=== PATIENT | female | born 1965 | race Caucasian/White ===

== ENCOUNTER 2017-08-02 09:05 | Emergency (ER) | payer OTHER ==
[~2017-08-02] VITALS: Ht 175.3 cm; Wt 132.8 kg
[2017-08-02 09:07] VITALS: BP 163/81; PULSE 96; RESP 16; TEMP 102.7; O2SAT 97
[2017-08-02] MEDS ORDERED: LOSA100T3 PO (09:19)
[2017-08-02] MEDS ORDERED: LEVO88TA2 PO (09:19)
[2017-08-02] MEDS ORDERED: METF500T PO (09:19)
[2017-08-02] MEDS ORDERED: CLON0.1T PO (09:19)
[2017-08-02 09:46] LABS: AUTOMATED NEUTROPHIL # 5.3 TH/MM3 (1.8-7.7); BASOPHIL % 0.6 % (0.0-2.0); EOSINOPHIL % 0.7 % (0.0-4.0); HEMATOCRIT 40.2 % (35.0-46.0); HEMOGLOBIN 13.5 GM/DL (11.6-15.3); LYMPH % 12.7 % (9.0-44.0); LYMPHOCYTE # 0.9 TH/MM3 (1.0-4.8); MEAN CELL VOLUME 94.8 FL (80.0-100.0); MEAN CORPUSCULAR HEMOGLOBIN 31.8 PG (27.0-34.0); MEAN CORPUSCULAR HGB CONC 33.6 % (32.0-36.0); MEAN PLATELET VOLUME 9.1 FL (7.0-11.0); MONO % 8.2 % (0.0-8.0); MONOCYTE # 0.6 TH/MM3 (0-0.9); NEUT % 77.8 % (16.0-70.0); PLATELET COUNT 135 TH/MM3 (150-450); RED BLOOD COUNT 4.24 MIL/MM3 (4.00-5.30); RED CELL DISTRIBUTION WIDTH 11.9 % (11.6-17.2); WHITE BLOOD COUNT 6.8 TH/MM3 (4.0-11.0)
--- NOTE | 2017-08-02 09:52 | PD ---
HPI Chief Complaint: GI Complaint Time Seen by Provider: 09:52 Travel History International Travel<30 days: No Contact w/Intl Traveler<30days: No Traveled to known affect area: No History of Present Illness HPI 52-year-old female came to the emergency room with history of cough, generalized weakness and not feeling well for past 4 days. Patient says that initially when her symptoms started she was also having diarrhea. The diarrhea has since then subsided. Patient has been nauseous and unable to eat much because of the sickness. She has not vomited. 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 She did get her influenza shot 1 month ago. Vital signs were stable when she arrived. She appears to be in moderate distress. Patient says that she has been taking Tylenol at home and the last one was at 2:30 AM. She has been running a fever at home and her temperature here was 100.5. PFSH Past Medical History Narrative Medical List of her past medical, surgical, social and family history is reviewed from the nursing note. Hx Anticoagulant Therapy: No Cardiovascular Problems: Yes (HTN) Diabetes: Yes (A1C 6.1) Patient Takes Glucophage: Yes (METFORMIN) Hypertension: Yes Thyroid Disease: Yes Tetanus Vaccination: > 5 Years Influenza Vaccination: Yes ?: Not Past Surgical History Section: Yes (X3) Tonsillectomy: Yes (7 ADNOIDS) Social History Alcohol Use: Yes (socially) Tobacco Use: No Substance Use: No Allergies-Medications (Allergen,Severity, Reaction): Coded Allergies: No Known Allergies (Unverified , 08/02/17) Comments No known drug allergies. Reported Meds & Prescriptions Reported Meds & Active Scripts Active Accu-Chek Charlene Plus W/Device (Blood Glucose Monitoring Suppl) 1 Kit Kit Appl Levaquin (Levofloxacin) 500 Mg Tablet 500 Mg PO DAILY 10 Days Reported Metformin (Metformin HCl) 500 Mg Tab 500 Mg PO BIDPC Losartan-Hydrochlorothiazide 100-12.5 Mg Tab 1 Tab PO DAILY Clonidine (Clonidine HCl) 0.1 Mg Tab 0.1 Mg PO BID Levothyroxine (Levothyroxine Sodium) 88 Mcg Tab 88 Mcg PO DAILY Narrative Medication List of her home medications reviewed from the nursing note. Review of Systems Except as stated in HPI: all other systems reviewed are Neg General / Constitutional: Positive: Fever, Chills Respiratory: Positive: Cough Gastrointestinal: Positive: Nausea Physical Exam Narrative GENERAL: Awake, alert, morbidly obese, moderate distress SKIN: Focused skin assessment warm/dry. HEAD: Atraumatic. Normocephalic. EYES: Pupils equal and round. No scleral icterus. No injection or drainage. ENT: No nasal bleeding or discharge. Mucous membranes pink and moist. NECK: Trachea midline. No JVD. CARDIOVASCULAR: Regular rate and rhythm. No murmur appreciated. RESPIRATORY: No accessory muscle use. Clear to auscultation. Breath sounds equal bilaterally. GASTROINTESTINAL: Abdomen soft, non-tender, nondistended. Hepatic and splenic margins not palpable. MUSCULOSKELETAL: No obvious deformities. No clubbing. No cyanosis. No edema. NEUROLOGICAL: Awake and alert. No obvious cranial nerve deficits. Motor grossly within normal limits. Normal speech. PSYCHIATRIC: Appropriate mood and affect; insight and judgment normal. Data Data Last Documented VS Orders Orders Complete Blood Count With Diff (08/02/17 09:23) Comprehensive Metabolic Panel (08/02/17 09:23) Lipase (08/02/17 09:23) Urinalysis - C+S If Indicated (08/02/17 09:23) Ed Urine Pregnancytest Poc (08/02/17 09:23) Chest, Single Ap (08/02/17 ) Influenzae A/B Antigen (08/02/17 10:09) Lactic Acid (08/02/17 10:09) Blood Culture (08/02/17 10:09) Ceftriaxone Inj (Rocephin Inj) (08/02/17 10:45) Azithromycin Inj (Zithromax Inj) (08/02/17 10:45) Ct Thorax/ Chest W Iv Contrast (08/02/17 ) Sodium Chlor 0.9% 1000 Ml Inj (Ns 1000 M (08/02/17 10:45) Sodium Chlor 0.9% 1000 Ml Inj (Ns 1000 M (08/02/17 10:45) Acetaminophen (Tylenol) (08/02/17 10:45) Ondansetron Inj (Zofran Inj) (08/02/17 11:00) Ondansetron Inj (Zofran Inj) (08/02/17 11:00) Iohexol 350 Inj (Omnipaque 350 Inj) (08/02/17 11:18) Ed Discharge Order (08/02/17 12:26) Urine Culture (08/02/17 12:50) Labs Laboratory Tests Test 08/02/17 09:35 08/02/17 10:25 08/02/17 12:50 White Blood Count 6.8 TH/MM3 Red Blood Count 4.24 MIL/MM3 Hemoglobin 13.5 GM/DL Hematocrit 40.2 % Mean Corpuscular Volume 94.8 FL Mean Corpuscular Hemoglobin 31.8 PG Mean Corpuscular Hemoglobin Concent 33.6 % Red Cell Distribution Width 11.9 % Platelet Count 135 TH/MM3 Mean Platelet Volume 9.1 FL Neutrophils (%) (Auto) 77.8 % Lymphocytes (%) (Auto) 12.7 % Monocytes (%) (Auto) 8.2 % Eosinophils (%) (Auto) 0.7 % Basophils (%) (Auto) 0.6 % Neutrophils # (Auto) 5.3 TH/MM3 Lymphocytes # (Auto) 0.9 TH/MM3 Monocytes # (Auto) 0.6 TH/MM3 Eosinophils # (Auto) 0.0 TH/MM3 Basophils # (Auto) 0.0 TH/MM3 CBC Comment DIFF FINAL Differential Comment Blood Urea Nitrogen 11 MG/DL Creatinine 0.84 MG/DL Random Glucose 176 MG/DL Total Protein 7.7 GM/DL Albumin 3.4 GM/DL Calcium Level 8.9 MG/DL Alkaline Phosphatase 72 U/L Aspartate Amino Transf (AST/SGOT) 39 U/L Alanine Aminotransferase (ALT/SGPT) 92 U/L Total Bilirubin 1.0 MG/DL Sodium Level 134 MEQ/L Potassium Level 3.8 MEQ/L Chloride Level 96 MEQ/L Carbon Dioxide Level 28.4 MEQ/L Anion Gap 10 MEQ/L Estimat Glomerular Filtration Rate 71 ML/MIN Lipase 130 U/L Lactic Acid Level 1.6 mmol/L Urine Collection Type CLEAN CATCH Urine Color YELLOW Urine Turbidity SLIGHT Urine pH 7.5 Urine Specific Eliot GREATER THAN 1.035 Urine Protein TRACE mg/dL Urine Glucose (UA) NEG mg/dL Urine Ketones NEG mg/dL Urine Occult Blood TRACE Urine Nitrite NEG Urine Bilirubin NEG Urine Leukocyte Esterase NEG Urine RBC 4-9 /hpf Urine WBC 3-5 /hpf Urine Squamous Epithelial Cells > 8 /hpf Urine Amorphous Sediment FEW Urine Bacteria MOD /hpf Microscopic Urinalysis Comment CULTURE INDICATED Urine Collection Time 1250 MDM Medical Decision Making Medical Screen Exam Complete: Yes Emergency Medical Condition: Yes Medical Record Reviewed: Yes Differential Diagnosis Influenza, sepsis, pneumonia, UTI Narrative Course 12:20 PM blood test results of back and patient has mild elevation of her liver function tests. Chest x-ray showed a right lower lobe infiltrate versus mass. Based on this I had ordered a CT scan of her chest which confirmed that this density is an infiltrate. Patient was given IV Rocephin and Zithromax and 2 L of IV fluid bolus. I've gone back and reassessed her couple times and kept her updated on the proceedings. Patient says that she is feeling better at this point. She was given Tylenol for her fever. I'm comfortable discharging her home since she is able to oxygenate well and has not vomited since she's been here. I'll discharge her home on Levaquin. I explained to her the precaution she needs to take for preventing C. difficile associated with Levaquin and she understands. Procedures EKG Prior to Arrival: No Diagnosis Primary Impression: Fever Qualified Codes: R50.9 - Fever, unspecified Additional Impressions: Pneumonia Qualified Codes: J18.1 - Lobar pneumonia, unspecified organism Hyperglycemia Referrals: Primary Care Physician Additional Instructions: Please take the antibiotic as per the prescription direction. 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 Return to the ER if condition worsens or any other new concerns. Otherwise follow-up with your primary care next couple days. Med/Other Pt SpecificInfo: Prescription(s) given Scripts Blood Glucose Monitoring Suppl (Accu-Chek Charlene Plus W/Device) 1 Kit Kit APPL, #1 Prov: Stacie Hillman MD 08/02/17 Levofloxacin (Levaquin) 500 Mg Tablet 500 MG PO DAILY for Infection for 10 Days, #10 TAB 0 Refills Prov: Stacie Hillman MD 08/02/17 Disposition: 01 DISCHARGE HOME Condition: Stable Stacie Hillman MD Aug 02, 2017 09:52
[2017-08-02 09:58] VITALS: BP 197/87; PULSE 86; RESP 18; O2SAT 97
[2017-08-02 10:01] LABS: CHLORIDE 96 MEQ/L (98-107); SODIUM (NA) 134 MEQ/L (136-145)
[2017-08-02 10:04] LABS: ALBUMIN 3.4 GM/DL (3.4-5.0); BICARBONATE 28.4 MEQ/L (21.0-32.0); CALCIUM 8.9 MG/DL (8.5-10.1)
[2017-08-02 10:05] LABS: GLUCOSE,RANDOM 176 MG/DL (74-106); LIPASE 130 U/L (73-393)
[2017-08-02 10:07] LABS: ALT (GPT) 92 U/L (10-53); AST (GOT) 39 U/L (15-37)
[2017-08-02 10:08] LABS: BLOOD UREA NITROGEN 11 MG/DL (7-18); CREATININE 0.84 MG/DL (0.50-1.00); GLOMERULAR FILTRATION RATE 71 ML/MIN (>89)
[2017-08-02 10:09] LABS: TOTAL PROTEIN 7.7 GM/DL (6.4-8.2)
[2017-08-02 10:10] LABS: ALKALINE PHOSPHATASE 72 U/L (45-117)
--- NOTE | 2017-08-02 10:32 | RADRPT ---
EXAM DATE/TIME: 08/02/2017 10:17 [facility] COMPARISON: No previous studies available for comparison. INDICATIONS : Nausea, diarrhea, fever. MEDICAL HISTORY : Hyperparathyroidism. Diabetes mellitus type II. SURGICAL HISTORY : section. ENCOUNTER: Initial ACUITY: 4 - 6 days PAIN SCORE: 0/10 LOCATION: Bilateral chest FINDINGS: There is increased density in the right medial base. There some prominence of the right infrahilar re gion. Left lung is clear. The heart size is normal. CONCLUSION: Right infrahilar consolidation. An underlying mass cannot be excluded. Gamaliel Huston MD on August 02, 2017 at 10:29 Board Certified Radiologist. This report was verified electronically.
[2017-08-02] MEDS ORDERED: AZITHROMYCIN INJ 500 MG in SODIUM CHLOR 0.9% 250 ML INJ 250 ML IV ONE (10:45)
[2017-08-02] MEDS ORDERED: SODIUM CHLOR 0.9% 1000 ML INJ 1,000 ML IV ONE ×2 (10:45)
[2017-08-02] MEDS ORDERED: cefTRIAXone INJ 1,000 MG in SODIUM CHLORIDE 0.9% INJ 100 ML IV ONE (10:45)
[2017-08-02] MEDS ORDERED: ACETAMINOPHEN 325 MG TAB PO ONE (10:45)
[2017-08-02 11:00] VITALS: BP 197/83; PULSE 87; RESP 18; O2SAT 97
[2017-08-02] MEDS ORDERED: ONDANSETRON HCL 4 MG/2 ML VIAL IV PUSH ONE ×2 (11:00)
[2017-08-02] MEDS ORDERED: IOHEXOL 350 MG/ML 10 ML VIAL (for RAD DIAG) IVCONTRAST ONE (11:18)
--- NOTE | 2017-08-02 11:32 | RADRPT ---
EXAM DATE/TIME: 08/02/2017 11:04 [facility] COMPARISON: CHEST SINGLE AP, August 02, 2017, 10:17. INDICATIONS : Abnormal chest x-ray. IV CONTRAST: 55 cc Omnipaque 350 (iohexol) IV RADIATION DOSE: 30.93 CTDIvol (mGy) ; Patient body habitus MEDICAL HISTORY : Hypertension. Diabetes mellitus type 2. Asthma. SURGICAL HISTORY : section. ENCOUNTER: Initial ACUITY: 1 day PAIN SCALE: 0/10 LOCATION: Right chest TECHNIQUE: Volumetric scanning of the chest was performed. Using automated exposure control and adjustment of t he mA and/or kV according to patient size, radiation dose was kept as low as reasonably achievable to obtain optimal diagnostic quality images. DICOM format image data is available electronically for review and comparison. Follow-up recommendations for detected pulmonary nodules are based at a minimum on nodule size and pa tient risk factors according to Fleischner Society Guidelines. FINDINGS: LUNGS: There is an area of dense consolidation involving the posterior medial right lower lobe. A central ma ss is not clearly seen. PLEURA: There is no pleural thickening or pleural effusion. MEDIASTINUM: The heart and great vessels demonstrate no acute abnormality. There is no mediastinal or hilar lymph adenopathy. AXILLAE: Within normal limits. No lymphadenopathy. SKELETAL: Within normal limits for patient age. MISCELLANEOUS: The visualized upper abdominal organs demonstrate no acute abnormality. There is diffuse hepatic stea tosis. There is a 2.7 cm round mass adjacent to the undersurface of the left diaphragmatic latha in th e posterior medial left upper quadrant. This is separate from the left adrenal gland. CONCLUSION: 1. Right lower lobe consolidation. This may represent an area of pneumonia. 2. Hepatic steatosis. 3. Nonspecific 2.7 cm smooth oval mass in posterior medial left upper quadrant adjacent to the unders urface of the posterior medial left diaphragm. This is nonspecific. It could represent a mesenchymal tumor such as a leiomyoma or duplication cyst. This focus could be followed with a CT or MRI examinat ion in 3-6 months. Gamaliel Huston MD on August 02, 2017 at 11:26 Board Certified Radiologist. This report was verified electronically.
[2017-08-02 12:02] VITALS: BP 161/91; PULSE 86; RESP 18; TEMP 102.7; O2SAT 96
[2017-08-02] MEDS ORDERED: LEVA500T33 PO (12:25)
[2017-08-02] MEDS ORDERED: ACCUKIT11 (12:25)
[2017-08-02 13:08] LABS: BILIRUBIN, URINE NEG (NEG); GLUCOSE,URINE NEG (NEG); KETONE, URINE NEG (NEG); NITRITE,URINE NEG (NEG); PH, URINE 7.5 (5.0-8.5); URINE LEUKOCYTE ESTERASE NEG (NEG)
[2017-08-02 13:11] LABS: BLOOD, URINE TRACE (NEG)
[2017-08-02 13:12] LABS: URINE COLOR YELLOW (YELLW/STRAW)
[2017-08-02 13:13] LABS: BACTERIA, URINE MOD /hpf
[2017-08-02 13:14] LABS: AMORPHOUS SEDIMENT, URINE FEW; SQUAMOUS EPITHELIAL CELL URINE > 8 /hpf (0-5)
[2017-08-02 13:31] VITALS: BP 146/75
== END 2017-08-02 13:05 | disposition home or self-care (01) ==
LOC: PHED 09:05
DX: J18.1 Lobar pneumonia, unspecified organism (principal); R50.9 Fever, unspecified; E11.65 Type 2 diabetes mellitus with hyperglycemia; R11.0 Nausea; R79.89 Other specified abnormal findings of blood chemistry; I10 Essential (primary) hypertension; E07.9 Disorder of thyroid, unspecified; Z79.84 Long term (current) use of oral hypoglycemic drugs
CPT/HCPCS: 71045; 71260; 80053; 81001; 83605; 83690; 85025; 87040; 87086; 87804; 96365; 96366; 96375; 99285; J0456; J0696; J2405; J7030; J7050; Q9967

== ENCOUNTER → 2017-12-29 | Day surgery (SDC) | payer OTHER ==
[~2017-12-29] MED LIST: ACCUKIT11; CLON0.1T PO; LACTATED RINGER'S 1000 ML INJ 1,000 ML ONE; LEVA500T33 PO; LEVO88TA2 PO; LOSA100T3 PO; METF500T PO; PROPOFOL 500 MG/50 ML BTL IV ONE
--- NOTE | 2017-12-29 11:46 | GIPROC ---
[facility] [address], [address] EGD PROCEDURE REPORT EXAM DATE: 12/29/2017 PATIENT NAME: Zoya Barragan MR #: [id number] BIRTHDATE: 1965 ATTENDING: Maged Souza MD ORDER #: [id number] [employer] ARC: Beth Umana RN STATUS: outpatient INDICATIONS: The patient is a 52 yr old female here for an EGD due to Preop evaluation for bariatric surgery PROCEDURE PERFORMED: EGD w/ biopsy MEDICATIONS: None and Per Anesthesia. TOPICAL ANESTHETIC: CONSENT: The patient understands the risks and benefits of the procedure and understands that these risks include, but are not limited to: sedation, allergic reaction, infection, perforation and/or bleeding. Alternative means of evaluation and treatment include, among others: physical exam, x-rays, and/or surgical intervention. The patient elects to proceed with this endoscopic procedure. medical equipment was checked for proper function. Hand hygiene and appropriate measures for infection prevention was taken. After the risks, benefits and alternatives of the procedure were thoroughly explained, Informed consent was verified, confirmed and timeout was successfully executed by the treatment team. The patient was anesthetized with topical anesthesia and the EC-[id number] ([id number]) endoscope was introduced through the mouth and advanced to the second portion of the duodenum. Retroflexed views revealed no abnormalities The gastroscope was then slowly withdrawn and removed. STOMACH: Gastric body nodules these were biopsied they are small and benign looking. There was mild gastritis in the gastric antrum. Multiple biopsies were performed. The endoscopy was otherwise normal. ADVERSE EVENTS: There were no complications. IMPRESSIONS: 1. Gastric body nodules these were biopsied they are small and benign looking 2. There was mild gastritis in the gastric antrum; multiple biopsies were performed 3. Normal endoscopy otherwise 4. Retroflexed views revealed no abnormalities RECOMMENDATIONS: 1. Await biopsy results. Biopsy results will not be ready for 7-10 days. If you don't hear from us in two weeks, call our office for biopsy results. 2. Follow-up: GI clinic PRN 3. If biopsies are benign then may proceed with bariatric surgery PATIENT CONDITION: stable DISPOSITION: Home REPEAT EXAM: Maged Souza MD eSigned: Maged Souza MD 12/29/2017 11:45 AM cc: Herman White M.D. PATIENT NAME: Zoya Barragan MR#: [id number]
--- NOTE | 2017-12-29 11:49 | GIPROC ---
[facility] [address] [facility], [address] COLONOSCOPY PROCEDURE REPORT EXAM DATE: 12/29/2017 PATIENT NAME: Zoya Barragan MR #: [id number] BIRTHDATE: 1965 ENDOSCOPIST: Maged Souza MD ORDER #: [id number] HITCH TECHNICIAN: Beth Umana RN STATUS: outpatient INDICATIONS: The patient is a 52 yr old female here for a colonoscopy due to average risk patient for colon cancer PROCEDURE PERFORMED: Colonoscopy with polypectomy Colonoscopy with biopsy MEDICATIONS: None and Per Anesthesia. PREP QUALITY: fair ESTIMATED BLOOD LOSS: None CONSENT: The patient understands the risks and benefits of the procedure and understands that these risks include, but are not limited to: sedation, allergic reaction, infection, perforation and/or bleeding. Alternative means of evaluation and treatment include, among others: physical exam, x-rays, and/or surgical intervention. The patient elects to proceed with this endoscopic procedure. medical equipment was checked for proper function. Hand hygiene and appropriate measures for infection prevention was taken. After the risks, benefits and alternatives of the procedure were thoroughly explained, Informed consent was verified, confirmed and timeout was successfully executed by the treatment team. A digital exam revealed external hemorrhoids The EC-[id number] ([id number]) endoscope was introduced through the anus and advanced to the cecum, which was identified by both the appendix and ileocecal valve. The instrument was then slowly withdrawn as the colon was fully examined. COLON FINDINGS: A small smooth sessile polyp was found in the distal transverse colon. A polypectomy was performed with cold forceps. The resection was complete and the polyp tissue was completely retrieved. Two medium sized smooth semi-pedunculated polyps were found in the rectum. A polypectomy was performed with a cold snare. The resection was complete and the polyp tissue was completely retrieved. Mild diverticulosis was noted in the descending colon and sigmoid colon. The colon mucosa was otherwise normal. Retroflexed views revealed no abnormalities The scope was then completely withdrawn from the patient and the procedure terminated. PROCEDURE WITHDRAWAL TIME:11.2minutes ADVERSE EVENTS: There were no complications. IMPRESSIONS: 1. A small sessile polyp was found in the distal transverse colon; polypectomy was performed with cold forceps 2. Two medium sized semi-pedunculated polyps were found in the rectum; polypectomy was performed with a cold snare 3. Mild diverticulosis was noted in the descending colon and sigmoid colon 4. The colon mucosa was otherwise normal 5. Retroflexed views revealed no abnormalities 6. Revealed external hemorrhoids RECOMMENDATIONS: 1. Await biopsy results. Biopsy results will not be ready for 7-10 days. If you don't hear from us in two weeks, call our office for results. 2. Yearly hemoccult 3. High fiber diet 4. Follow-up: GI Clinic PRN RECALL: Return 3 years Colonoscopy Maged Souza MD eSigned: Maged Souza MD 12/29/2017 11:49 AM cc: Gamaliel Crystal M.D and Herman White M.D. PATIENT NAME: Zoya Barragan MR#: [id number]
== END | disposition home or self-care (01) ==
LOC: ESDC 08:16
PROVIDERS: ATTEND Internal Medicine Gastroenterology
DX: Z12.11 Encounter for screening for malignant neoplasm of colon (principal); K64.4 Residual hemorrhoidal skin tags; D12.3 Benign neoplasm of transverse colon; K62.1 Rectal polyp; K57.90 Diverticulosis of intestine, part unspecified, without perforation or abscess without bleeding; K31.89 Other diseases of stomach and duodenum; K29.70 Gastritis, unspecified, without bleeding
CPT/HCPCS: 00813; 43239; 45380; 45385; 88305; 88312; J3010; J7120